=== PATIENT | male | born 1970 | race Caucasian/White ===

== ENCOUNTER 2020-07-01 09:14 | Emergency (ER) | payer OTHER ==
[~2020-07-01] VITALS: Ht 185.4 cm; Wt 150.0 kg
--- NOTE | 2020-07-01 09:22 | NUR ---
EKG DONE ON ARRIVAL. PT PLACED ON ALL ROOM MONITORING. PT C/O SOB, BODY ACHES SINCE THIS AM. CLOSE EXPOSURE TO FRIEND/NEIGHBOR WHO TESTED POSITIVE FOR COVID AND IS HOSPITALIZED AT [facility]. VSS, PULSE OX 98%. CALL LIGHT WITHIN REACH.
--- NOTE | 2020-07-01 09:58 | NUR ---
RAPID COVID COMPLETED BY DR SEPULVEDA.
[2020-07-01 10:16] LABS: MEAN CORPUSCULAR HEMOGLOBIN 27.3 pg (27.5-34.5); MEAN PLATELET VOLUME 8.4 fL (7.4-10.4); PLATELET COUNT 153 x10^3/uL (130-400); RED BLOOD COUNT 5.57 x10^6/uL (4.38-5.82); RED CELL DISTRIBUTION WIDTH 15.9 % (9.4-14.8)
[2020-07-01 10:20] LABS: ALANINE AMINOTRANSFERASE 40 U/L (12-78); ALBUMIN 3.5 g/dL (3.4-5.0); ANION GAP 5 mmol/L (5-15); C-REACTIVE PROTEIN, QUANT 0.66 mg/dL (0.02-0.49); CALCIUM 8.2 mg/dL (8.5-10.1); CHLORIDE 108 mmol/L (98-107); CREATININE 0.81 mg/dL (0.7-1.3)
[2020-07-01 10:24] LABS: ALKALINE PHOSPHATASE 126 U/L (45-117); BILIRUBIN,TOTAL 0.4 mg/dL (0.2-1.0); TOTAL PROTEIN 6.4 g/dL (6.4-8.2)
[2020-07-01 10:33] LABS: MD YES
[2020-07-01 10:35] LABS: BAND#(MANUAL) 0.36 x10^3/uL; BANDS%(MANUAL) 7 % (0-7); EOS#(MANUAL) 0.05 x10^3/uL (0.0-0.4); EOS% (MANUAL) 1 % (1-7); LYMPH#(MANUAL) 0.52 x10^3/uL (1-3.4); LYMPHS% (MANUAL) 10 % (22-44); MONOS#(MANUAL) 0.16 x10^3/uL (0.3-2.7); MONOS% (MANUAL) 3 % (2-9); SEG#(MANUAL) 4.11 x10^3/uL (1.8-6.8); SEGS% (MANUAL) 79 % (42-75)
[2020-07-01 10:36] LABS: <PLATELET ESTIMATE> ADEQUATE; <PLT MORPHOLOGY> NORMAL PLT MORPH; ANISOCYTOSIS 1+
[2020-07-01] MEDS ORDERED: FILTER 0.22 MICRON IV ONE (11:00)
[2020-07-01] MEDS ORDERED: BAMLANIVIMAB 700 MG in SODIUM CHLORIDE 0.9% 180 ML IVPB ONE (11:00)
--- NOTE | 2020-07-01 11:10 | NUR ---
IV PLACED. ANTIBODY AND EDUCATION SHEETS/INFO RECEIVED FROM PHARMACY. EDUCATION SHEETS PROVIDED TO PT, QUESTIONS ANSWERED. INFUSING WITH FILTER PER EMAR. CLOSE MONITORING DURING INFUSION. VSS/UPDATED IN COMPUTER.
--- NOTE | 2020-07-01 12:46 | NUR ---
INFUSION COMPLETED, NS INFUSING TO FLUSH ANTIBODY FROM TUBING. CONTINUE TO MONITOR FOR ONE HOURS POST INFUSION. NO ADVERSE REACTION, PT RESTING COMFORTABLY, VSS/UPDATED IN COMPUTER. LIGHTS DIMMED.
--- NOTE | 2020-07-01 14:21 | NUR ---
PT WC BOUND, UNABLE TO TAKE TAXI HOME, DOES NOT HAVE VAN TO BRING MOTORIZED WC IN. THROUGHPUT NOTIFIED, WILL ARRANGE MED TRANSPORT HOME.
[2020-07-01 14:32] VITALS: BP 132/78
--- NOTE | 2020-07-01 16:15 | NUR ---
[facility] TRANSPORT HOME.
== END 2020-07-01 16:19 | disposition home or self-care (01) ==
LOC: ED 14:39
DX: U07.1 COVID-19 (principal); J18.9 Pneumonia, unspecified organism; R00.0 Tachycardia, unspecified
CPT/HCPCS: 36415; 71045; 80053; 82728; 83605; 83615; 84145; 85025; 86140; 87635; 93005; 99284; J7050; M0239; Q0239; 96365; 96366